=== PATIENT | male | born 1965 | race African-American/Black ===

== ENCOUNTER 2017-07-19 09:41 | Day surgery (SDC) | payer BC ==
[~2017-07-19] VITALS: Ht 185.4 cm; Wt 106.8 kg
--- NOTE | ~2017-07-19 | OP ---
PATIENT NAME: ZENAIDA BATES MEDICAL RECORD: [id number] :61 LOCATION:D.OPS ADMISSION DATE: SURGEON: ELIA SANCHEZ MD DATE OF OPERATION: 07/19/2017 PREOPERATIVE DIAGNOSES: History of gastric polyps which have bled and caused anemia. POSTOPERATIVE DIAGNOSES: History of gastric polyps which have bled and caused anemia with 2 new gastric polyps, both sessile, one measuring 1.0 in greatest dimension, the other measuring 1.2 in greatest dimension. PROCEDURE: 1. Esophagogastroduodenoscopy with antral biopsies. 2. Gastric hot biopsy forceps polypectomies times 2. SURGEON: Elia Sanchez MD IN STORE REPRESENTATIVE: None. BLOOD LOSS: Minimal. ANESTHESIA: IV sedation. COMPLICATIONS: None. The risks, possible complications and alternatives to procedure were explained to the patient. He elects to proceed. The discussion specifically included, but was not limited to, bleeding requiring emergency reoperation, infection, intestinal injury. OPERATIVE COURSE: The patient was conveyed to the GI lab electively on 07/19/2017. IV sedation was induced by the anesthesia staff. A bite block was inserted. A gastroscope was inserted into the mouth. It was advanced easily into the hypopharynx. The esophagus was easily intubated as were the stomach and duodenum. Upon withdrawal, retroflexed and angulus views were obtained. Antral biopsies were obtained. Two gastric hot biopsy forceps polypectomies were performed. The endoscope was then withdrawn under direct vision. I will see the patient in my office in 2-3 weeks. It is likely that he will no longer require surveillance upper endoscopies unless he develops iron deficiency anemia again. TRANSINT:[id number] Voice Confirmation ID: [id number] DOCUMENT ID: [id number] ELIA SANCHEZ MD at 1158 CC: ADRIANE SAEED MD [id number] DICTATION DATE: 07/19/17 1246 ESTATE ADMINISTRATOR: 07/19/17 1458 [facility] 07/19/[address] [address]
--- NOTE | ~2017-07-19 | HP ---
PATIENT: ZENAIDA BATES MEDICAL RECORD: [id number] ACCOUNT: [id number] LOCATION:[facility] : 61 ADMISSION DATE: 07/19/17 HISTORY AND PHYSICAL EXAMINATION CHIEF COMPLAINT: History of gastric polyps. HISTORY OF PRESENT ILLNESS: The patient has had a history of gastric polyps that have bled in the past. He underwent argon plasma coagulation therapy in the past. The patient has had questionable melena. Otherwise, is pretty asymptomatic. He states that he has not been anemic recently. HOME MEDICATIONS: None. ALLERGIES: No known drug allergies. SOCIAL HISTORY: Nonsmoker. REVIEW OF SYSTEMS: Negative for CVA or seizures. Negative for diabetes or thyroid problems. PHYSICAL EXAMINATION: GENERAL: The patient does not appear acutely ill. He does not appear chronically ill. VITAL SIGNS: Reviewed. HEAD: External ears appear normal. EYES: Extraocular movements are intact. NECK: Trachea is midline. CHEST: No intercostal retractions. PULMONARY: Nonlabored, no stridor. IMPRESSION: History of gastric polyps. PLAN: Surveillance upper endoscopy. TRANSINT:[id number] Voice Confirmation ID: [id number] DOCUMENT ID: [id number] SONAL SANCHEZ MD at 1506 CC: ADRIANE SAEED MD [id number] DICTATION DATE: 07/19/17 1157 SECRETARY ADMINISTRATIVE ASSISTANT: 07/19/17 1214 [facility] 07/19/17 [facility] [address] [place] [address]
[~2017-07-19 09:41] MED LIST: AMOXICILLIN500 M1 PO; BIAXIN 500 MG500 MG PO; PRILOSEC20 MG PO; PROBIOTIC1 EAC1 PO
[2017-07-19 10:43] VITALS: BP 143/80; Ht 185.4 cm; Wt 106.8 kg
== END 2017-07-19 13:26 | disposition home or self-care (01) ==
LOC: D.OPS 09:41
DX: K31.7 Polyp of stomach and duodenum (principal); D64.9 Anemia, unspecified; K29.50 Unspecified chronic gastritis without bleeding; Z01.812 Encounter for preprocedural laboratory examination